=== PATIENT | female | born 1940 | race Caucasian/White ===

== ENCOUNTER 2023-03-06 12:26 | Emergency (ER) | payer OTHER ==
[~2023-03-06] VITALS: Ht 152.4 cm; Wt 61.2 kg
== END 2023-03-06 17:06 | disposition home or self-care (01) ==
LOC: ER 12:27
DX: S01.111A Laceration without foreign body of right eyelid and periocular area, initial encounter (principal); W18.30XA Fall on same level, unspecified, initial encounter; Y93.89 Activity, other specified; Y92.59 Other trade areas as the place of occurrence of the external cause; Y99.9 Unspecified external cause status
CPT/HCPCS: 12011; 70450; 70486; 96372; 99284; J1100

== ENCOUNTER 2024-04-24 10:45 | Inpatient (IN) | payer OTHER ==
[~2024-04-24] VITALS: Ht 30.5 cm; Wt 60.8 kg
[2024-04-24] MEDS ORDERED: TOPROL XL25 M1 PO (13:24)
[2024-04-24] MEDS ORDERED: GABAPENTIN100 M2 PO (13:25)
[2024-04-24] MEDS ORDERED: ATIVAN1 M1 PO (13:25)
[2024-04-24] MEDS ORDERED: CELEBREX200MG PO (13:25)
[2024-04-24] MEDS ORDERED: ATORVASTATIN CA10 MG PO (13:26)
[2024-04-24] MEDS ORDERED: VITAMIN C100 MG (13:26)
[2024-04-24] MEDS ORDERED: VITAMIN E400 UNI7 PO (13:27)
[2024-04-24] MEDS ORDERED: VITAMIN B-121000 MC4 PO (13:27)
[2024-04-24] MEDS ORDERED: CHILDREN'S ASPI81 MG PO (13:28)
[2024-04-24 15:47] LABS: RH POSITIVE
[2024-05-08] MEDS ORDERED: LIDOCAINE HCL 1% 20 ML VIAL IJ ONE (07:45)
[2024-05-08] MEDS ORDERED: METROnidazole 500 MG TABLET PO ONE (07:45)
[2024-05-08] MEDS ORDERED: BUPIVACAINE HCL/PF 0.25% 30ML VIAL InF ONE (07:45)
[2024-05-08] MEDS ORDERED: CEFTRIAXONE SODIUM 2,000 MG VIAL IV ONE (07:45)
[2024-05-08] MEDS ORDERED: OxyCODONE HCL 5 MG TABLET (ROXICODONE) PO PRN (09:30)
[2024-05-08] MEDS ORDERED: MORPHINE SULFATE 4 MG/ML CARTRIDGE IV PRN (09:30)
[2024-05-08] MEDS ORDERED: RINGERS SOLUTION,LACTATED 1,000 ML IV SCH (09:30)
[2024-05-08] MEDS ORDERED: DEXTROSE 50 % IN WATER 0.5 G/ML DISP.SYRIN IV PRN (09:30)
[2024-05-08] MEDS ORDERED: ONDANSETRON HCL 2 MG/ML VIAL IV PRN (09:30)
[2024-05-08] MEDS ORDERED: MORPHINE SULFATE 4 MG/ML VIAL IV ONE ×2 (09:40→10:10)
[2024-05-08 11:35] LABS: HEMATOCRIT 37.1 % (36.0-45.00); HEMOGLOBIN 12.1 g/dL (12.0-15.00); MEAN CELL VOLUME 81.1 fL (80.00-100.00); MEAN CORPUSCULAR HEMOGLOBIN 26.4 pg (27.00-32.0); MEAN CORPUSCULAR HGB CONC 32.6 g/dl (32.0-36.0); PLATELET COUNT 297 K/uL (150-450); RED BLOOD COUNT 4.57 M/uL (4.00-6.00)
[2024-05-08 11:36] LABS: RED CELL DISTRIBUTION WIDTH 20.6 % (11.5-14.5)
[2024-05-08 11:50] LABS: ALBUMIN 3.3 gm/dL (3.4-5.0); CALCIUM 9.2 mg/dL (8.5-10.1); CREATININE SERUM 0.59 mg/dL (0.55-1.02); GFR 97.58; MAGNESIUM 1.8 mg/dL (1.8-2.4); PHOSPHOROUS 3.8 mg/dL (2.5-4.9); POTASSIUM 3.26 mEq/L (3.5-5.1)
[2024-05-08] MEDS ORDERED: ENALAPRILAT DIHYDRATE 1.25 MG/ML VIAL IV PRN (13:45)
[2024-05-08] MEDS ORDERED: ACETAMINOPHEN 500 MG GEL..CAP PO SCH (14:00)
[2024-05-08] MEDS ORDERED: GABAPENTIN 300 MG CAPSULE PO SCH (17:00)
[2024-05-08] MEDS ORDERED: POLYETHYLENE GLYCOL 3350 17 GM BLIST.PACK PO SCH (17:00)
[2024-05-08] MEDS ORDERED: FAMOTIDINE/PF 20 MG/2 ML VIAL IV PUSH SCH (21:00)
[2024-05-08] MEDS ORDERED: CELECOXIB 200 MG CAPSULE PO SCH (21:00)
[2024-05-08 22:55] VITALS: BP 114/66; O2SAT 96
[2024-05-09 01:08] VITALS: BP 118/63; O2SAT 96
[2024-05-09 07:40] LABS: ALBUMIN 2.9 gm/dL (3.4-5.0); CALCIUM 8.7 mg/dL (8.5-10.1); CREATININE SERUM 0.51 mg/dL (0.55-1.02); GFR 115.45; MAGNESIUM 1.6 mg/dL (1.8-2.4); PHOSPHOROUS 2.8 mg/dL (2.5-4.9); POTASSIUM 4.13 mEq/L (3.5-5.1)
[2024-05-09 08:00] VITALS: BP 137/62; O2SAT 98
[2024-05-09 08:05] LABS: HEMATOCRIT 32.6 % (36.0-45.00); HEMOGLOBIN 10.9 g/dL (12.0-15.00); MEAN CELL VOLUME 79.4 fL (80.00-100.00); MEAN CORPUSCULAR HEMOGLOBIN 26.5 pg (27.00-32.0); MEAN CORPUSCULAR HGB CONC 33.4 g/dl (32.0-36.0); PLATELET COUNT 267 K/uL (150-450); RED BLOOD COUNT 4.11 M/uL (4.00-6.00); RED CELL DISTRIBUTION WIDTH 20.8 % (11.5-14.5)
[2024-05-09] MEDS ORDERED: METOPROLOL SUCCINATE 25 MG TAB.SR.24H PO SCH (09:00)
[2024-05-09] MEDS ORDERED: MAGNESIUM SULFATE IN WATER 50 ML IV NR (11:00)
[2024-05-09 16:00] VITALS: BP 154/66; O2SAT 95
[2024-05-09] MEDS ORDERED: ENOXAPARIN SODIUM 40 MG/0.4 ML SYRINGE SUBCUTANEO SCH (17:00)
[2024-05-10] VITALS: BP 155/82; O2SAT 96
[2024-05-10 06:57] LABS: HEMATOCRIT 33.9 % (36.0-45.00); HEMOGLOBIN 11.1 g/dL (12.0-15.00); MEAN CELL VOLUME 81.1 fL (80.00-100.00); MEAN CORPUSCULAR HEMOGLOBIN 26.6 pg (27.00-32.0); MEAN CORPUSCULAR HGB CONC 32.8 g/dl (32.0-36.0); PLATELET COUNT 265 K/uL (150-450); RED BLOOD COUNT 4.18 M/uL (4.00-6.00); RED CELL DISTRIBUTION WIDTH 20.2 % (11.5-14.5)
[2024-05-10 07:20] LABS: CALCIUM 8.7 mg/dL (8.5-10.1); CREATININE SERUM 0.54 mg/dL (0.55-1.02); GFR 108.08; MAGNESIUM 2.2 mg/dL (1.8-2.4); POTASSIUM 4.22 mEq/L (3.5-5.1)
[2024-05-10 08:00] VITALS: BP 150/80; O2SAT 97
[2024-05-10] MEDS ORDERED: ENOXAPARIN SODIUM 40 MG/0.4 ML SYRINGE SUBCUTANEO SCH (09:00)
[2024-05-10] MEDS ORDERED: TRAMADOL HCL50 MG PO (13:42)
[2024-05-10] MEDS ORDERED: INTESTINEX680 M1 PO (13:42)
== END 2024-05-10 14:44 | disposition home or self-care (01) | DRG 330 ==
LOC: SURG 05-01 10:15 → O/R 05-08 05:15 → SURG 05-08 05:15
PROVIDERS: Internal Medicine Geriatric Medicine; ADMIT Surgery; ATTEND Surgery
PROC: 0DBP4ZZ Excision of Rectum, Percutaneous Endoscopic Approach (ICD-10-PCS; 2024-05-08)
PROC: 0DBM4ZZ Excision of Descending Colon, Percutaneous Endoscopic Approach (ICD-10-PCS; 2024-05-08)
PROC: 07BC4ZZ Excision of Pelvis Lymphatic, Percutaneous Endoscopic Approach (ICD-10-PCS; 2024-05-08)
PROC: 0DJD8ZZ Inspection of Lower Intestinal Tract, Via Natural or Artificial Opening Endoscopic (ICD-10-PCS; 2024-05-08)
PROC: 0DTN4ZZ Resection of Sigmoid Colon, Percutaneous Endoscopic Approach (ICD-10-PCS; principal; 2024-05-08 16:15)
DX: C18.7 Malignant neoplasm of sigmoid colon (principal); C18.6 Malignant neoplasm of descending colon; R59.0 Localized enlarged lymph nodes; K66.0 Peritoneal adhesions (postprocedural) (postinfection); K59.09 Other constipation; E83.42 Hypomagnesemia; D64.89 Other specified anemias; I10 Essential (primary) hypertension; E78.5 Hyperlipidemia, unspecified